=== PATIENT | male | born 1975 | race Caucasian/White ===

== ENCOUNTER 2025-07-15 19:11 | Emergency (ER) | payer OTHER, SELFPAY ==
[2025-07-15 19:15] VITALS: BP 143/88
[2025-07-15 19:38] LABS: Hematocrit 43.6 % (39.0-52.0); Hemoglobin 15.3 g/dL (13.0-18.0); Mean Corp Hgb Conc. 35.1 g/dL (33.0-37.0); Mean Corpuscular Volume 85.8 fL (80.0-94.0); Nucleated Red Blood Cells % 0 % (-); Platelet Count 224 10^3/uL (130-400); Red Cell Dist. Width 12.6 % (11.5-14.5)
[2025-07-15 19:50] LABS: ALT (SGPT) 88 U/L (0-50); AST (SGOT) 70 U/L (17-59); Albumin 5.1 g/dl (3.5-5.0); Alkaline Phosphatase 50 U/L (38-126); Blood Urea Nitrogen 17 mg/dl (9-20); Calcium 9.1 mg/dl (8.4-10.2); Carbon Dioxide 27 mmol/L (22-30); Chloride 98 mmol/L (98-107); Glucose 108 mg/dl (70-99); Lipase 111 U/L (23-300); Potassium 4.0 mmol/L (3.5-5.1); Sodium 133 mmol/L (135-145); Total Protein 8.5 g/dl (6.3-8.2); eGFR > 60.00
[2025-07-15 20:51] VITALS: BMI 27.9
[2025-07-15 21:00] VITALS: BP 120/87
--- NOTE | 2025-07-15 21:04 | ED.GENMED ---
History of Present Illness
General
Chief Complaint: Abdominal Pain
Source: patient and family (sister at bedside)
Exam Limitations: none
Time Seen by Provider: 07/15/25 21:02
Nursing documentation reviewed up to this point in time: agreed with
History of Present Illness
History of Present Illness:
49-year-old male with no significant past medical history presents for generalized abdominal pain that 'moves' to both testicles. Has been there 'a long time.' Pt is very vague about his symptoms, denies n/v/d/ states constipation but states he had
a BM today. States 'I don't know, all over' when asked where his abdominal pain is. Denies fever, difficulty or pain with urination. When asked if he has pain in testicles now states, 'maybe a little in the left one, can't you look at both of them?'
When asked what his main concern is states 'what if I have testicular cancer?' He states he hasn't seen a doctor in years.
He does not work due to left hip and right knee pain but states he has no plan to get them fixed because 'I hate hospitals, I don't even like being here now.'
Past History
Past History
ED Past Medical History: None
ED Past Surgical History: None
Social History
Tobacco: Non-smoker
Alcohol: None
Personal: Single
Living: alone
Employment: Not employed
Review of Systems
Review of Systems
Allergies reviewed?: Yes
All Other Systems: ROS reviewed and negative except as documented in HPI and ROS
Phy Exam
Physical Exam
Physical Exam:
GENERAL: No acute distress. A&Ox3.
CONSTITUTIONAL: Afebrile.
EYES: clear, conjunctivae normal
ENMT: moist mucus membranes, Pharynx nl
RESPIRATORY: Regular respirations, nonlabored, lungs clear.
CARDIOVASCULAR: Regular rate and rhythm, no murmurs, no rubs.
GI: Soft, nontender, normal BS
: Normal external genitalia, circumcised, testicles non tender, no palpable masses.
MUSCULOSKELETAL: Moves with ease. Well perfused.
SKIN: Warm, dry, pink
PSYCH: Normal mood and affect. Well kept, interactive and appropriate
NEUROLOGIC: Awake, alert and oriented. No focal neurological deficits
Course
Orders/Labs/Results
Orders:
Orders
07/15/25 19:24
Complete Blood Count/With Diff Urgent
Comprehensive Metabolic Panel Urgent
Lipase Urgent
07/15/25 21:15
CT Abd/pelvis W Iv Cont Urgent
Comment:
Reason For Exam: generalized pain
07/15/25 21:16
Scrotum US [US Scrotum] Urgent
Comment:
Reason For Exam: pain in both testicles
Abnormal Lab Results
07/15/25
19:24
WBC 4.5 L 10^3/uL
(4.8-10.8)
Absolute Monos (auto) 0.8 H 10^3/uL
(0.1-0.6)
Monocytes % 17.0 H %
(1.7-9.3)
Sodium 133 L mmol/L
(135-145)
Glucose 108 H mg/dl
(70-99)
AST 70 H U/L
(17-59)
ALT 88 H U/L
(0-50)
Total Protein 8.5 H g/dl
(6.3-8.2)
Albumin 5.1 H g/dl
(3.5-5.0)
07/15/25 19:24
07/15/25 19:24
Vital Signs
Initial and Last Documented VS:
Initial Vital Signs
Temp Pulse Resp BP Pulse Ox
98.2 F 80 18 143/88 98
07/15/25 19:15 07/15/25 19:15 07/15/25 19:15 07/15/25 19:15 07/15/25 19:15
Last Documented Vital Signs
Temp Pulse Resp BP Pulse Ox
98.2 F 65 23 109/97 97
07/15/25 19:15 07/16/25 01:00 07/16/25 01:00 07/15/25 23:27 07/16/25 00:00
MDM/Problems Addressed
Differential Diagnosis Includes:
hydrocele, varicocele, torsion, epididymitis
MDM/Problems Addressed:
49-year-old male with no significant past medical history presents for generalized abdominal pain that 'moves' to both testicles. Has been there 'a long time.' Pt is very vague about his symptoms, denies n/v/d/ states constipation but states he had
a BM today. States 'I don't know, all over' when asked where his abdominal pain is. Denies fever, difficulty or pain with urination. When asked if he has pain in testicles now states, 'maybe a little in the left one, can't you look at both of them?'
When asked what his main concern is states 'what if I have testicular cancer?' He states he hasn't seen a doctor in years.
He does not work due to left hip and right knee pain but states he has no plan to get them fixed because 'I hate hospitals, I don't even like being here now.'
Pt in no distress
Abdomen with no significant tenderness to palpation but he points to left side abdomen 'what's over here?' and states that where it hurts.
Normal external genital exam.
11:30 p.m.
Testicular US radiology report read: IMPRESSION:
No sonographic evidence for testicular torsion, orchitis, or epididymitis.
There is a moderate right-sided hydrocele and a small left-sided hydrocele.
Small left-sided varicocele.
Printed pictures on varicocele and hydrocele and explained each to pt.
12:50 a.m. 07/16/25
CT abd/pelvis w IV contrast [facility] read: No acute finding.
Offered [id number] but he kindly refuses
Pt reassured no worrisome findings, referred to GI.
At discharge, pt ambulated out with normal gait.
*Pulse Oximetry
SaO2: 98
Oxygen Mode of Delivery: Room air
Patient hypoxic: no
*Critical Care Note
Total Time (30-74mins, 75-104mins- exclusive of procedures): Not Applicable
ED Attending Note
-
Portions of this chart may have been created with voice recognition software.� Occasional wrong word or��sound alike� substitutions may have occurred due to the inherent limitations of voice recognition software.
Discharge Plan
Departure
Patient Disposition: Home (Routine Discharge)
Date of Disposition: 07/16/25
Time of Disposition: 00:54
Patient with high blood pressure during this ER visit?: No
Condition: Fair
Discharge Problem:
Abdominal pain
Instructions: Abdominal Pain
Prescriptions:
No Action
hydrocodone-acetaminophen 1 EACH tablet
1 ea PO Q6HPRN Qty: 10 0RF
sulfamethoxazole-trimethoprim [Bactrim DS] 1 EACH tablet
1 tab PO BID Qty: 20 0RF
cephalexin 500 MG capsule
500 mg PO QID Qty: 40 0RF
Referrals:
Luis M Sarah MD [Active, Gastroenterology] - Next open appointment
Markel Marrero MD [Family Provider, Family Practice]
Activity Restrictions/Additional Instructions:
As we discussed, nothing worrisome in your workup here today. Specifically nothing worrisome in the CAT scan of your abdomen or the ultrasound of your testicles.
I have given you the name of a GI doctor to follow-up with
Interventions
Interventions:
*Risk Screen - Suicide Last Done: 07/15/25 19:15
*General Assessment Last Done: 07/15/25 19:15
*Neglect/Abuse Screening Last Done: 07/15/25 19:15
*ED- Fall Risk Assessment Last Done: 07/15/25 20:52
*ED COVID-19 Vaccine History Last Done: 07/15/25 20:52
*ED Influenza Vaccine History Last Done: 07/15/25 20:52
*Nursing Disposition Last Done: 07/16/25 01:11
VP-Dmzpob-Ttfhpokueh Assessment Last Done: 07/15/25 20:54
Discharge Date and Time
Discharge Date/Time: 07/16/25 01:12
Print Language: YAKUT
[2025-07-15 22:00] VITALS: BP 136/93
[2025-07-15 23:27] VITALS: BP 109/97
== END 2025-07-16 01:12 | disposition home or self-care (01) ==
LOC: EMR 19:11
PROVIDERS: EMERGENCY PHYSICIAN Emergency Medicine; FAMILY PHYSICIAN Family Medicine
DX: R10.84 Generalized abdominal pain (principal)
CPT/HCPCS: 99284; 74177; 76870; 80053; 83690; 85025; 93976; Q9967

== ENCOUNTER 2025-09-06 06:31 | Day surgery (SDC) | payer OTHER, SELFPAY | END 2025-09-06 14:50 | disposition home or self-care (01) | LOC: GI 06:31 | PROVIDERS: ATTENDING PHYSICIAN Internal Medicine Gastroenterology | DX: R13.10 Dysphagia, unspecified (principal); R12 Heartburn; K44.9 Diaphragmatic hernia without obstruction or gangrene; K22.89 Other specified disease of esophagus; K31.89 Other diseases of stomach and duodenum; K29.50 Unspecified chronic gastritis without bleeding; K20.90 Esophagitis, unspecified without bleeding; R89.7 Abnormal histological findings in specimens from other organs, systems and tissues | CPT/HCPCS: 43239; 88305; 88342 ==